=== PATIENT | female | born 1945 | race Asian ===

== ENCOUNTER 2019-12-19 14:22 | Inpatient (IN) | payer MEDICARE ==
[2019-12-19 14:55] LABS: #Basophils 0.1 thou/uL (0.0-0.2); #Eosinphils 0.3 thou/uL (0.0-0.7); #Lymphocytes 1.5 thou/uL (1.20-3.40); #Monocytes 0.6 thou/uL (0.11-0.59); #Neutrophils 5.1 thou/uL (1.40-6.50); %Basophils 0.9 % (0.0-1.0); %Eosinophils 3.6 % (0.0-10.0); %Lymphocytes 20.3 % (21.0-51.0); %Monocytes 8.2 % (0.0-10.0); %Neutrophils 66.9 % (42.0-75.0); Hemoglobin 10.7 g/dL (12.0-16.0); Mean Corpuscular HGB CONC 32.8 g/dL (32.0-36.0); Mean Corpuscular Hemoglobin 29.8 pg (27.0-31.0); Mean Corpuscular Volume 90.9 fL (78.0-98.0); Mean Platelet Volume 6.6 fL (7.4-10.4); Platelet Count 255 thou/uL (130-400); RBC Distribution Width 13.5 % (11.5-14.5); Red Blood Cell (RBC) Count 3.59 mill/uL (4.20-5.40); White Blood Cell (WBC) Count 7.6 thou/uL (4.8-10.8)
[2019-12-19 15:14] LABS: ALT (SGPT) 16 U/L (8-55); AST (SGOT) 20 U/L (5-34); Albumin 3.9 g/dL (3.4-4.8); Alkaline Phosphatase 70 U/L (40-110); Anion Gap 11 mmol/L (10-20); BUN (Urea Nitrogen) 15 mg/dL (9.8-20.1); Bilirubin, Total 0.6 mg/dL (0.2-1.2); CK (CPK) 92 U/L (29-168); Calc. Creatinine Clearance 0 mL/min (70-130); Calcium 8.7 mg/dL (7.8-10.44); Carbon Dioxide 25 mmol/L (23-31); Chloride 98 mmol/L (98-107); Estimated GFR-MDRD 74; Globulin 3.2 g/dL (2.4-3.5); Glucose 125 mg/dL (83-110); Potassium 3.4 mmol/L (3.5-5.1); Protein, Total 7.1 g/dL (6.0-8.3); Sodium 131 mmol/L (136-145)
--- NOTE | 2019-12-19 15:23 | RAD ---
EXAM: Two views chest PROVIDED CLINICAL HISTORY: Cough and increasing shortness of breath. Swelling in legs. COMPARISON: 12/10/2019 FINDINGS: Cardiac silhouette remains enlarged. Calcified mitral valve annulus is again noted. Again noted is mi ld prominence of the perihilar interstitial markings which could be related to an element of mild pulmonary edema. There is increased density overlying left lateral costophrenic angle similar to prio r study which is probably due to overlying soft tissue density as opposed to pleural fluid or atelectasis. No consolidation is seen. Vascular calcifications are again seen in the thoracic as well as visualized abdominal aorta. Again noted is severe left glenohumeral osteoarthropathy. Osteonecrosis involving the humeral head cannot be entirely excluded, and this was better evaluated o n study of 09/23/2019. IMPRESSION: Cardiomegaly with mild increase in perihilar interstitial densities which could relate to an element of mild pulmonary edema..
[2019-12-19] MEDS ORDERED: Furosemide 20 MG/2 ML VIAL ONE (16:37)
[2019-12-19] MEDS ORDERED: Dextrose 50% Abboject 50 ML SYRINGE SLOW IVP PRN (17:00)
[2019-12-19] MEDS ORDERED: Ondansetron PF 4 MG/2 ML Vial IVP PRN (17:00)
[2019-12-19] MEDS ORDERED: Acetaminophen 650 MG Suppository PR PRN (17:00)
[2019-12-19] MEDS ORDERED: HumaLOG 300 UNITS/3 ML VIAL SC PRN (17:00)
[2019-12-19] MEDS ORDERED: Dextrose 5% in Water 1,000 ML IV PRN (17:00)
--- NOTE | 2019-12-19 17:16 | HP ---
PRIMARY CARE PROVIDER: Angie Coronel MD CHIEF COMPLAINT: Shortness of breath. HISTORY OF PRESENT ILLNESS: Ms. Burns is a pleasant 74-year-old lady, who was seen at [facility] on December 19, 2019. The patient is able to provide history. Her daughter was the leather sprayer for this clinical encounter. Ms. Burns has been on furosemide for at least 10 years. Her roller varnisher is Dr. Dela Cruz. Over the last 2 weeks, she has noticed leg swelling and shortness of breath. [facility]. Her Lasix dose was doubled from 20 mg 2 times a day to 40 mg 2 times a day. She continued to have the above symptoms. She endorses orthopnea, paroxysmal nocturnal dyspnea, cough that is occasionally productive of sputum and shortness of breath on exertion. She denies any fevers, nausea, vomiting, or chest pain. She denies any abdominal pain. She came to the emergency room because of ongoing symptoms. REVIEW OF SYSTEMS: All systems were reviewed and found to be negative except for the pertinent positives mentioned above. PAST MEDICAL HISTORY: Congestive heart failure; myocardial infarction; diabetes mellitus, type 2; hypertension; and coronary artery disease. PAST SURGICAL HISTORY: Dental surgery and cardiac catheterization with stent. SOCIAL HISTORY: No history of tobacco use, alcohol use, or recreational drug use. FAMILY HISTORY: Significant for multiple members with coronary artery disease. ALLERGIES: TRAMADOL. CURRENT MEDICATIONS: 1. Lasix 40 mg 2 times a day. 2. Nifedipine 60 mg daily. 3. Eliquis 5 mg 2 times a day. 4. Coreg 12.5 mg 2 times a day. 5. Telmisartan 80 mg daily. 6. Isosorbide mononitrate 60 mg daily. CODE STATUS: I discussed her code status. She is DNAR. PHYSICAL EXAMINATION: GENERAL: On examination, Ms. Burns is awake and alert, not in acute distress. VITAL SIGNS: Blood pressure is 137/60, pulse 70, respiratory rate 22, and oxygen saturation 92% on room air. She is afebrile. EYES: No scleral icterus. No conjunctival pallor. ENT: Moist mucosal membranes. No oropharyngeal erythema or exudates. NECK: Supple, nontender, trachea midline. She has jugular venous distention. RESPIRATORY: Accessory muscles of breathing are mildly active. Chest wall movements are symmetric bilaterally. LUNGS: Reveal bilateral crackles. CARDIOVASCULAR: S1 and S2 are heard, irregular. Peripheral pulses palpable. No pericardial rub. ABDOMEN: Distended, nontender. Bowel sounds are heard. NEUROLOGIC: Cranial nerves II through XII are intact. MUSCULOSKELETAL: The patient is able to move all 4 extremities. SKIN: Bilateral lower extremity pitting edema. LYMPHATIC: No cervical lymphadenopathy. PSYCHIATRIC: Normal mood, normal affect. The patient is oriented to person, place, and time. DIAGNOSTIC DATA: Ms. Burns's labs and investigations were reviewed. I reviewed her electrocardiogram, which shows atrial fibrillation, premature ventricular complexes, no ST changes to suggest an acute coronary syndrome. Chest x-ray by my review shows pulmonary edema. She has normal white count, normocytic anemia with hemoglobin 10.7, normal platelet count, decreased sodium of 131, decreased potassium of 3.4, normal creatinine, normal LFTs and elevated BNP of 355. ASSESSMENT AND PLAN: Ms. Burns is a pleasant 74-year-old lady, who was seen at [facility] on December 19, 2019. Her problem list includes: 1. Congestive heart failure exacerbation: Ms. Burns is presenting with congestive heart failure exacerbation. She had left ventricular ejection fraction of 55% to 60% on 2D echocardiogram done in October 2016. She will be admitted to the hospital for further management. I will treat her with furosemide, daily weights, and in's and out's. We will check 2D echocardiogram. We will consult Cardiology Service for opinion and help with management. 2. Diabetes mellitus, type 2: Start Accu-Cheks and insulin sliding scale. 3. Atrial fibrillation: The patient has a history of atrial fibrillation. We will continue Eliquis. 4. Hypertension: We will continue home medications, monitor vital signs and titrate antihypertensives as needed. Many thanks for allowing me to participate in your patient's care. Please feel free to contact me with any questions or concerns. LEVEL OF RISK: High. LEVEL OF COMPLEXITY: High. Job ID: [id number]
[2019-12-19 17:38] LABS: Troponin I Less than 0.010 ng/mL (< 0.028)
[2019-12-19] MEDS: Acetaminophen 325 MG TAB PO PRN (19:20)
[2019-12-19] MEDS ORDERED: Melatonin 3 MG TAB PO PRN (20:08)
[2019-12-19] MEDS ORDERED: Non-Formulary Item 1 EACH (Pitavastatin Calcium [Livalo] 4 MG) PO SCH (20:15)
[2019-12-19] MEDS ORDERED: Apixaban 5 MG TAB PO SCH (21:00)
[2019-12-19] MEDS ORDERED: Furosemide 20 MG TAB PO SCH (21:00)
[2019-12-19 21:13] LABS: Troponin I 0.013 ng/mL (< 0.028)
[2019-12-19] MEDS ORDERED: Carvedilol 6.25 MG TAB PO SCH (21:15)
[2019-12-19] MEDS: Apixaban 5 MG TAB PO SCH (21:17)
[2019-12-19] MEDS: traZODone HCl 50 MG TAB PO SCH (21:17)
[2019-12-19] MEDS: Bisacodyl 5 MG TAB PO PRN (21:19)
[2019-12-19] MEDS ORDERED: rOPINIRole HCl 0.5 MG TAB PO SCH ×2 (21:30→21:54)
[2019-12-19] MEDS ORDERED: Simethicone Chewable 80 MG TAB PO SCH (21:30)
--- NOTE | 2019-12-19 21:56 | PDOC.EVN ---
Event Note - Event Note Event Note: Called for restless leg symptoms which are daily occuring and uncontrolled on home meds. Requip is ordered 0.5 mg qHS, will increase to 1mg qHS, continue increasing every 2 days or so as normal effective dose is 2-4mg daily per uptodate
[2019-12-19 23:53] VITALS: BMI 34.9
--- NOTE | 2019-12-20 01:48 | CON ---
DATE OF CONSULTATION: HISTORY: Zeynep Burns is a 74 year-old female who has been a long-time patient of Dr. Dela Cruz. In 2009, she underwent PTCA and stent placement. She has history of atrial fibrillation and has been on chronic anticoagulation. She was last admitted in January 2017, with increased dyspnea. Recently, she has been having increasing shortness of breath as well as lower extremity edema. She has had problems with episodes of PND and orthopnea. At times when she is supine in bed and develops the PND, she has some chest pressure that would last for 5-10 minutes. Her furosemide was increased from 20 b.i.d. to 40 q.a.m, 20 q.p.m. and then 40 b.i.d. without significant improvement in her dyspnea. She saw Dr. Dela Cruz on December 15. Echocardiogram that day revealed ejection fraction of 50% to 55% with mild aortic stenosis with a peak gradient of 16.8 mm , mean gradient of 9 mm, aortic valve area 1.67 cm2. She also had severe mitral regurgitation. Left ventricular size; however was normal. Procardia 60 b.i.d. was reduced to q.a.m. and she was restarted on Micardis 80 mg one half tablet daily. She has not had the Micardis filled yet. PAST MEDICAL HISTORY: Coronary artery disease, diastolic heart failure, severe mitral regurgitation, mild aortic stenosis, diabetes and hypertension. CURRENT MEDICATIONS: 1. Furosemide 20 mg-two tablets b.i.d. 2. Eliquis 5 mg daily. 3. Aspirin 81 daily. 4. Carvedilol 6.25 b.i.d. 5. Zyrtec 10 daily. 6. Isosorbide mononitrate 60 q.a.m. 7. Melatonin 3 mg at bedtime. 8. Procardia 60 daily. 9. Omeprazole 20 daily. 10. Livalo 4 mg every other day. 11. Simethicone p.r.n. 12. Trazodone 50 daily. ALLERGIES: TRAMADOL. SOCIAL HISTORY: She does not smoke. PHYSICAL EXAMINATION: VITAL SIGNS: Blood pressure 186/75, pulse of 91. HEENT: PERRL. NECK: Supple. CHEST: Reveals crackles at the bases. CARDIOVASCULAR: S1 and S2 normal without any S3 or S4. There is a 2/6 holosystolic murmur along the left lower sternal border. ABDOMEN: Normal bowel sounds without tenderness or organomegaly. EXTREMITIES: Revealed 2+ edema. NEUROLOGIC: Grossly intact. SKIN: Warm and dry. IMAGING: EKG reveals atrial fibrillation and evidence for septal infarction. LABORATORY DATA: Hemoglobin 10.7, hematocrit 32.6, white count 7600, platelets 255,000. Sodium 131, potassium 3.4, chloride 98, carbon dioxide 25, BUN 15, creatinine 0.76. BNP 355.0. Cardiac enzymes are unremarkable. IMPRESSION: 1. Ipygr-uc-bgdirwa diastolic heart failure. 2. Severe mitral regurgitation. 3. Mild aortic stenosis. 4. History of coronary artery disease with stent placement. 5. Hypertension. 6. Diabetes. 7. Hypercholesterolemia-LDL 60 earlier this month. PLAN: The patient will be placed on 40 mg of Lasix IV b.i.d. The Micardis will be restarted. Renal function will be watched closely with diuresis. If she continues to have problems with this, then she may be a candidate for a MitraClip. Job ID: [id number] [facility]
[2019-12-20 04:21] LABS: #Eosinphils 0.3 thou/uL (0.0-0.7); #Lymphocytes 1.6 thou/uL (1.20-3.40); #Monocytes 0.7 thou/uL (0.11-0.59); #Neutrophils 4.3 thou/uL (1.40-6.50); %Basophils 0.5 % (0.0-1.0); %Eosinophils 3.7 % (0.0-10.0); %Lymphocytes 23.1 % (21.0-51.0); %Monocytes 9.9 % (0.0-10.0); %Neutrophils 62.9 % (42.0-75.0); Mean Corpuscular HGB CONC 32.1 g/dL (32.0-36.0); Mean Corpuscular Hemoglobin 29.3 pg (27.0-31.0); Mean Corpuscular Volume 91.3 fL (78.0-98.0); Mean Platelet Volume 6.8 fL (7.4-10.4); Platelet Count 251 thou/uL (130-400); RBC Distribution Width 13.7 % (11.5-14.5); Red Blood Cell (RBC) Count 3.42 mill/uL (4.20-5.40); White Blood Cell (WBC) Count 6.8 thou/uL (4.8-10.8)
[2019-12-20 04:31] LABS: Anion Gap 14 mmol/L (10-20); BUN (Urea Nitrogen) 15 mg/dL (9.8-20.1); Calc. Creatinine Clearance 102 mL/min (70-130); Calcium 8.7 mg/dL (7.8-10.44); Carbon Dioxide 26 mmol/L (23-31); Chloride 98 mmol/L (98-107); Estimated GFR-MDRD 85; Glucose 114 mg/dL (83-110); Potassium 3.1 mmol/L (3.5-5.1); Sodium 135 mmol/L (136-145)
[2019-12-20] MEDS: Furosemide 40 MG/4 ML VIAL SLOW IVP SCH ×2 (05:53→13:03)
[2019-12-20] MEDS ORDERED: Carvedilol 6.25 MG TAB PO SCH (08:00)
[2019-12-20] MEDS: Simethicone Chewable 80 MG TAB PO SCH ×3 (08:50→18:06)
[2019-12-20] MEDS: Carvedilol 6.25 MG TAB PO SCH ×2 (08:50→18:06)
[2019-12-20] MEDS: Aspirin 81 mg Enteric Coated Tablet PO SCH (08:51)
[2019-12-20] MEDS: Apixaban 5 MG TAB PO SCH ×2 (08:51→21:01)
[2019-12-20] MEDS: NIFEdipine XL 60 MG TAB PO SCH (08:51)
[2019-12-20] MEDS ORDERED: NIFEdipine XL 60 MG TAB PO SCH (09:00)
[2019-12-20] MEDS ORDERED: rOPINIRole HCl 0.5 MG TAB PO SCH ×2 (09:00→21:00)
[2019-12-20] MEDS ORDERED: Losartan 25 MG TAB PO SCH ×2 (09:00)
[2019-12-20] MEDS ORDERED: traZODone HCl 50 MG TAB PO SCH (09:00)
[2019-12-20] MEDS ORDERED: TELMISARTAN 40 MG PO SCH (09:00)
[2019-12-20] MEDS ORDERED: Potassium Chloride 20 MEQ TAB PO SCH (14:15)
--- NOTE | 2019-12-20 17:28 | PDOC.HOSPP ---
- Subjective Encounter Date: 12/20/19 Encounter Time: 08:40 Subjective: Pt seen for followup re: CHF exacerbation. Feels better today. - Objective Vital Signs & Weight: Vital Signs (12 hours) Temp Pulse Pulse Pulse Resp BP BP 12/20/19 15:44 98.1 F 65 22 H 12/20/19 15:00 82 105 H 159/68 H 176/73 H 12/20/19 12:23 97.3 F L 56 L 15 12/20/19 10:06 68 144/64 H 12/20/19 07:46 99.3 F 85 22 H BP BP BP Pulse Ox Pulse Ox 12/20/19 15:44 148/68 H 98 12/20/19 15:00 97 12/20/19 12:23 147/91 H 92 L 12/20/19 10:06 90 L 12/20/19 07:46 174/84 H 92 L Weight Weight 197 lb Result Diagrams: 12/20/19 03:41 12/20/19 03:41 Additional Labs: Accuchecks 12/20/19 12/20/19 12/19/19 11:46 05:58 21:13 POC Glucose 147 H 125 H 126 H Labs and MARs reviewed by me EKG Reviewed by me: Yes (Tele: a. fib) Hospitalist ROS - Review of Systems Constitutional: denies: fever, chills, sweats, weakness, malaise Respiratory: reports: SOB with excertion Cardiovascular: reports: orthopnea, edema. denies: chest pain, palpitations, paroxysmal noc. dyspnea, light headedness - Medication Medications: Active Medications Generic Name Dose Route Start Last Admin Trade Name Freq PRN Reason Stop Dose Admin Acetaminophen 650 mg 12/19/19 17:00 12/19/19 19:20 Tylenol PO 650 mg Q4H PRN Administration Headache/Fever/Mild Pain (1-3) Apixaban 5 mg 12/19/19 21:00 12/20/19 08:51 Eliquis PO 5 mg BID SLOANE Administration Aspirin 81 mg 12/20/19 09:00 12/20/19 08:51 Ecotrin PO 81 mg DAILY SLOANE Administration Bisacodyl 10 mg 12/19/19 17:00 12/19/19 21:19 Dulcolax PO 10 mg DAILYPRN PRN Administration Constipation Carvedilol 12.5 mg 12/20/19 08:00 12/20/19 08:50 Coreg PO 12.5 mg BID-WM SLOANE Administration Furosemide 40 mg 12/20/19 06:00 12/20/19 13:03 Lasix SLOW IVP 40 mg 0600,1400 SLOANE Administration Isosorbide Mononitrate 60 mg 12/20/19 09:00 12/20/19 08:51 Imdur PO 60 mg DAILY SLOANE Administration Losartan Potassium 50 mg 12/20/19 09:00 12/20/19 08:51 Cozaar PO 50 mg DAILY SLOANE Administration Nifedipine 60 mg 12/20/19 09:00 12/20/19 08:51 Procardia Xl PO 60 mg DAILY SLOANE Administration Pantoprazole Sodium 40 mg 12/20/19 09:00 12/20/19 08:52 Protonix PO 40 mg DAILY SLOANE Administration Simethicone 160 mg 12/20/19 08:00 12/20/19 12:26 Mylicon Chewable PO 160 mg TID-WM SLOANE Administration Trazodone HCl 50 mg 12/19/19 21:00 12/19/19 21:17 Desyrel PO 50 mg HS SLOANE Administration - Exam General - other findings: Obese Eye: anicteric sclera ENT: moist mucosa Neck: supple, JVD Heart: irregular Respiratory - other findings: Yogi crackles Gastrointestinal: soft, non-tender Extremities: 2+ LE edema Skin: no rashes Psychiatric: normal affect, normal behavior Hosp A/P (1) Acute on chronic systolic heart failure, NYHA class 3 Code(s): I50.23 - ACUTE ON CHRONIC SYSTOLIC (CONGESTIVE) HEART FAILURE Status : Acute (2) Hypokalemia Code(s): E87.6 - HYPOKALEMIA Status: Acute (3) Hyponatremia Code(s): E87.1 - HYPO-OSMOLALITY AND HYPONATREMIA Status: Acute (4) Atrial fibrillation Code(s): I48.91 - UNSPECIFIED ATRIAL FIBRILLATION Status: Chronic (5) Chronic anticoagulation Code(s): Z79.01 - CATERING SALES MANAGER (CURRENT) USE OF ANTICOAGULANTS Status: Chronic (6) Diabetes mellitus type 2 in obese Code(s): E11.9 - TYPE 2 DIABETES MELLITUS WITHOUT COMPLICATIONS; E66.9 - OBESITY , UNSPECIFIED Status: Chronic (7) Hyperlipidemia Code(s): E78.5 - HYPERLIPIDEMIA, UNSPECIFIED Status: Chronic (8) Hypertension Code(s): I10 - ESSENTIAL (PRIMARY) HYPERTENSION Status: Chronic (9) RLS (restless legs syndrome) Status: Chronic - Plan Clinically improving. Continue furosemide. Replace potassium. hyponatremia mild. Continue accuchecks and insulin sliding scale. Titrate ropinirole for RLS BP elevated at times. Monitor vital signs, titrate antihypertensives as needed. Add PRN IV hydralazine. Ambulate pt.
[2019-12-20] MEDS ORDERED: hydrALAZINE 20 MG/ML VIAL SLOW IVP PRN (17:38)
[2019-12-20] MEDS: rOPINIRole HCl 0.5 MG TAB PO SCH (21:00)
[2019-12-20] MEDS: hydrALAZINE 25 MG TAB PO SCH (21:01)
[2019-12-20] MEDS: traZODone HCl 50 MG TAB PO SCH (21:01)
--- NOTE | 2019-12-21 04:09 | PDOC.EVN ---
Event Note - Event Note Event Note: RN called - Post void 524 ml PLAN: Urine Cath x 1 Monitor Post void
[2019-12-21 04:48] LABS: #Basophils 0.1 thou/uL (0.0-0.2); #Eosinphils 0.2 thou/uL (0.0-0.7); #Lymphocytes 1.7 thou/uL (1.20-3.40); #Monocytes 0.8 thou/uL (0.11-0.59); #Neutrophils 6.1 thou/uL (1.40-6.50); %Basophils 0.6 % (0.0-1.0); %Eosinophils 2.2 % (0.0-10.0); %Lymphocytes 18.9 % (21.0-51.0); %Monocytes 9.4 % (0.0-10.0); %Neutrophils 68.9 % (42.0-75.0); Mean Corpuscular HGB CONC 30.9 g/dL (32.0-36.0); Mean Corpuscular Hemoglobin 28.4 pg (27.0-31.0); Mean Corpuscular Volume 91.7 fL (78.0-98.0); Mean Platelet Volume 6.8 fL (7.4-10.4); Platelet Count 271 thou/uL (130-400); RBC Distribution Width 13.8 % (11.5-14.5); Red Blood Cell (RBC) Count 3.87 mill/uL (4.20-5.40); White Blood Cell (WBC) Count 8.9 thou/uL (4.8-10.8)
[2019-12-21 05:12] LABS: Anion Gap 12 mmol/L (10-20); BUN (Urea Nitrogen) 18 mg/dL (9.8-20.1); Calc. Creatinine Clearance 101 mL/min (70-130); Calcium 9.2 mg/dL (7.8-10.44); Carbon Dioxide 31 mmol/L (23-31); Chloride 97 mmol/L (98-107); Estimated GFR-MDRD 83; Glucose 128 mg/dL (83-110); Potassium 3.8 mmol/L (3.5-5.1); Sodium 136 mmol/L (136-145)
[2019-12-21] MEDS: Furosemide 40 MG/4 ML VIAL SLOW IVP SCH ×2 (05:34→13:55)
[2019-12-21] MEDS: Carvedilol 6.25 MG TAB PO SCH ×2 (08:55→16:05)
[2019-12-21] MEDS: Simethicone Chewable 80 MG TAB PO SCH ×3 (08:56→16:05)
[2019-12-21] MEDS: Apixaban 5 MG TAB PO SCH ×2 (08:56→20:34)
[2019-12-21] MEDS: Losartan 25 MG TAB PO SCH (08:57)
[2019-12-21] MEDS: hydrALAZINE 25 MG TAB PO SCH ×3 (08:57→20:33)
[2019-12-21] MEDS: Aspirin 81 mg Enteric Coated Tablet PO SCH (08:57)
[2019-12-21] MEDS: NIFEdipine XL 60 MG TAB PO SCH (08:58)
[2019-12-21] MEDS ORDERED: Lidocaine 5% Patch TD SCH (11:00)
[2019-12-21] MEDS: Lidocaine 5% Patch TD SCH (11:20)
[2019-12-21] MEDS: Acetaminophen 325 MG TAB PO PRN (11:29)
[2019-12-21] MEDS ORDERED: Ketorolac Tromethamine 30 MG/ML VIAL IVP SCH (13:00)
--- NOTE | 2019-12-21 13:04 | PDOC.HOSPP ---
- Subjective Encounter Date: 12/21/19 Encounter Time: 08:00 Subjective: Pt seen for followup re: CHF exacerbation. c/o right foot pain. No fevers. - Objective Vital Signs & Weight: Vital Signs (12 hours) Temp Pulse Resp BP BP BP Pulse Ox 12/21/19 11:26 98.0 F 65 18 145/104 H 98 12/21/19 07:43 98.4 F 77 16 135/79 99 12/21/19 03:57 98.5 F 74 16 173/72 H 96 Weight Weight 187 lb 14.4 oz I&O: 12/20/19 12/21/19 12/22/19 06:59 06:59 06:59 Intake Total 1480 Output Total 1950 Balance -470 Result Diagrams: 12/21/19 04:38 12/21/19 04:38 Additional Labs: Accuchecks 12/21/19 12/21/19 12/20/19 10:45 05:32 20:24 POC Glucose 159 H 129 H 129 H 12/20/19 17:26 POC Glucose 168 H Labs and MARs reviewed by me EKG Reviewed by me: Yes (Tele: livier fuchs) Hospitalist ROS - Review of Systems Respiratory: reports: SOB with excertion. denies: cough, shortness of breath, pleuritic pain, wheezing Cardiovascular: reports: edema. denies: chest pain, palpitations, orthopnea, paroxysmal noc. dyspnea, light headedness Musculoskeletal: reports: foot pain - Medication Medications: Active Medications Generic Name Dose Route Start Last Admin Trade Name Freq PRN Reason Stop Dose Admin Acetaminophen 650 mg 12/19/19 17:00 12/21/19 11:29 Tylenol PO 650 mg Q4H PRN Administration Headache/Fever/Mild Pain (1-3) Apixaban 5 mg 12/19/19 21:00 12/21/19 08:56 Eliquis PO 5 mg BID SLOANE Administration Aspirin 81 mg 12/20/19 09:00 12/21/19 08:57 Ecotrin PO 81 mg DAILY SLOANE Administration Bisacodyl 10 mg 12/19/19 17:00 12/19/19 21:19 Dulcolax PO 10 mg DAILYPRN PRN Administration Constipation Carvedilol 12.5 mg 12/20/19 08:00 12/21/19 08:55 Coreg PO 12.5 mg BID-WM SLOANE Administration Furosemide 40 mg 12/20/19 06:00 12/21/19 05:34 Lasix SLOW IVP 40 mg 0600,1400 SLOANE Administration Hydralazine HCl 10 mg 12/20/19 17:38 12/20/19 23:55 Apresoline SLOW IVP 10 mg Q6H PRN Administration SBP Greater Than 170 Hydralazine HCl 25 mg 12/20/19 21:00 12/21/19 08:57 Apresoline PO 25 mg TID SLOANE Administration Isosorbide Mononitrate 60 mg 12/20/19 09:00 12/21/19 08:57 Imdur PO 60 mg DAILY SLOANE Administration Lidocaine 1 patch 12/21/19 11:00 12/21/19 11:20 Lidoderm 5% Patch TD 1 patch 1100 SLOANE Administration Losartan Potassium 100 mg 12/21/19 09:00 12/21/19 08:57 Cozaar PO 100 mg DAILY SLOANE Administration Nifedipine 60 mg 12/20/19 09:00 12/21/19 08:58 Procardia Xl PO 60 mg DAILY SLOANE Administration Ondansetron HCl 4 mg 12/19/19 17:00 12/21/19 12:42 Zofran IVP 4 mg Q6H PRN Administration Nausea/Vomiting Pantoprazole Sodium 40 mg 12/20/19 09:00 12/21/19 08:58 Protonix PO 40 mg DAILY SLOANE Administration Ropinirole HCl 1 mg 12/20/19 21:00 12/20/19 21:00 Requip PO 1 mg HS SLOANE Administration Simethicone 160 mg 12/20/19 08:00 12/21/19 11:20 Mylicon Chewable PO 160 mg TID-WM SLOANE Administration Sodium Chloride 10 ml 12/20/19 21:00 12/21/19 08:58 Flush - Normal Saline IVF 10 ml Q12HR SLOANE Administration Trazodone HCl 50 mg 12/19/19 21:00 12/20/19 21:01 Desyrel PO 50 mg HS SLOANE Administration - Exam General - other findings: Obese Eye: anicteric sclera ENT: moist mucosa Neck: supple Heart: irregular Respiratory - other findings: Yogi crackles Gastrointestinal: soft, non-tender Extremities: 2+ LE edema Skin: no rashes Neurological: no weakness Musculoskeletal - other findings: R foot diffuse tenderness Psychiatric: normal affect Hosp A/P (1) Acute on chronic systolic heart failure, NYHA class 3 Code(s): I50.23 - ACUTE ON CHRONIC SYSTOLIC (CONGESTIVE) HEART FAILURE Status : Acute (2) Right foot pain Code(s): M79.671 - PAIN IN RIGHT FOOT Status: Acute (3) Atrial fibrillation Code(s): I48.91 - UNSPECIFIED ATRIAL FIBRILLATION Status: Chronic (4) Chronic anticoagulation Code(s): Z79.01 - SNF (CURRENT) USE OF ANTICOAGULANTS Status: Chronic (5) Diabetes mellitus type 2 in obese Code(s): E11.9 - TYPE 2 DIABETES MELLITUS WITHOUT COMPLICATIONS; E66.9 - OBESITY , UNSPECIFIED Status: Chronic (6) Hyperlipidemia Code(s): E78.5 - HYPERLIPIDEMIA, UNSPECIFIED Status: Chronic (7) Hypertension Code(s): I10 - ESSENTIAL (PRIMARY) HYPERTENSION Status: Chronic (8) RLS (restless legs syndrome) Status: Chronic (9) Hypokalemia Code(s): E87.6 - HYPOKALEMIA Status: Resolved (10) Hyponatremia Code(s): E87.1 - HYPO-OSMOLALITY AND HYPONATREMIA Status: Resolved - Plan Responding well to IV furosemide. trial toradol/lidocaine patch, check R foot x-rays. Continue accuchecks and insulin sliding scale. Continue ropinirole for RLS increase hydralazine to 50 mg TID. Ambulate pt.
--- NOTE | 2019-12-21 14:22 | RAD ---
Radiograph right foot 3 views: HISTORY: 74-year-old female with acute right foot pain FINDINGS: Diffuse osteopenia. Mild and moderate degenerative changes of multiple joints of the forefoot and mid foot. No grossly displaced fracture identified. IMPRESSION: 1. Osteoarthrosis. 2. Osteopenia.
[2019-12-21] MEDS: traZODone HCl 50 MG TAB PO SCH (20:32)
[2019-12-21] MEDS: rOPINIRole HCl 0.5 MG TAB PO SCH (20:33)
[2019-12-22] MEDS: Lidocaine Patch Removal 1 EACH TOP SCH (04:47)
[2019-12-22 04:49] LABS: #Eosinphils 0.1 thou/uL (0.0-0.7); #Lymphocytes 1.4 thou/uL (1.20-3.40); #Monocytes 1.3 thou/uL (0.11-0.59); #Neutrophils 5.9 thou/uL (1.40-6.50); %Basophils 0.4 % (0.0-1.0); %Lymphocytes 15.9 % (21.0-51.0); %Monocytes 14.6 % (0.0-10.0); %Neutrophils 68.1 % (42.0-75.0); Hemoglobin 9.9 g/dL (12.0-16.0); Mean Corpuscular HGB CONC 31.1 g/dL (32.0-36.0); Mean Corpuscular Volume 90.1 fL (78.0-98.0); Mean Platelet Volume 6.9 fL (7.4-10.4); Platelet Count 269 thou/uL (130-400); RBC Distribution Width 13.8 % (11.5-14.5); Red Blood Cell (RBC) Count 3.53 mill/uL (4.20-5.40); White Blood Cell (WBC) Count 8.7 thou/uL (4.8-10.8)
[2019-12-22 05:06] LABS: Anion Gap 12 mmol/L (10-20); BUN (Urea Nitrogen) 25 mg/dL (9.8-20.1); Calc. Creatinine Clearance 68 mL/min (70-130); Calcium 8.5 mg/dL (7.8-10.44); Carbon Dioxide 31 mmol/L (23-31); Chloride 93 mmol/L (98-107); Estimated GFR-MDRD 55; Glucose 121 mg/dL (83-110); Potassium 3.7 mmol/L (3.5-5.1); Sodium 132 mmol/L (136-145)
[2019-12-22] MEDS: Furosemide 40 MG/4 ML VIAL SLOW IVP SCH (05:43)
[2019-12-22] MEDS: Acetaminophen 325 MG TAB PO PRN (06:09)
[2019-12-22] MEDS: Simethicone Chewable 80 MG TAB PO SCH ×3 (08:39→16:44)
[2019-12-22] MEDS: Carvedilol 6.25 MG TAB PO SCH ×2 (08:39→16:43)
[2019-12-22] MEDS: Apixaban 5 MG TAB PO SCH ×2 (08:40→21:12)
[2019-12-22] MEDS: hydrALAZINE 25 MG TAB PO SCH ×3 (08:40→21:11)
[2019-12-22] MEDS: Aspirin 81 mg Enteric Coated Tablet PO SCH (08:40)
[2019-12-22] MEDS: Losartan 25 MG TAB PO SCH (08:41)
[2019-12-22] MEDS ORDERED: methylPREDNISolone Sod Succ 40 MG VIAL IVP SCH (09:15)
[2019-12-22] MEDS: Lidocaine 5% Patch TD SCH ×2 (10:21→12:18)
[2019-12-22 10:24] LABS: CRP (Inflammatory) 8.48 mg/dL (= or < 0.5); Uric Acid 7.2 mg/dL (2.6-6.0)
[2019-12-22] MEDS ORDERED: Promethazine 25 MG TAB PO PRN (10:48)
[2019-12-22 12:47] LABS: Iron Binding Capacity, Total 331 mcg/dL (265-497)
[2019-12-22 12:48] LABS: Iron 20 ug/dL (50-170)
[2019-12-22 13:37] LABS: EliA RAS New Method **** NEW METHOD ****; Rheumatoid Factor IgM Antibody 6.6 IU/mL (<3.5 Negative)
--- NOTE | 2019-12-22 13:38 | ULT ---
ULTRASOUND DOPPLER DUPLEX VENOUS BILATERAL LOWER EXTREMITIES: DATE: 12/22/2019 HISTORY: 74-year-old female with bilateral lower extremity pain TECHNIQUE: Grayscale, color-flow, and spectral analysis, of major veins of bilateral lower extremities. FINDINGS: There is demonstration of blood flow with normal compressibility, of the bilateral common femoral, pr ofunda femoral, greater saphenous, femoral, popliteal, and posterior tibial, veins. IMPRESSION: Negative. No deep venous thrombosis of bilateral lower extremities.
--- NOTE | 2019-12-22 14:07 | PQF ---
MANE JOINER DAVID [phone] [facility]-292 [phone] CLINICAL DOCUMENTATION IMPROVEMENT CLARIFICATION FORM: ICD-10 Updated PLEASE DO AN ADDENDUM TO THE PROGRESS NOTE WITH ANY DOCUMENTATION UPDATES OR ADDITIONS AND CARRY THROUGH TO DC SUMMARY. THANK YOU. DATE: 12/22/2019 ATTN:DR. Graham DEL REAL Please exercise your independent, professional judgment in responding to the clarification form. Clinical indicators are provided on the bottom of this form for your review. Please check appropriate box(s): Conflicting documentation was noted in the Medical Record, please clarify if patient is being treated/monitored for: [ ] Acute on Chronic Systolic Congestive heart failure [ ] Acute on Chronic Diastolic Congestive heart failure [ ] Other diagnosis [ ] Unable to determine In addition, please specify: Present on Admission (POA): [ ] Yes [ ] No [ ] Unable to determine For continuity of documentation, please document condition throughout progress notes and discharge summary. Thank You. CLINICAL INDICATORS - SIGNS / SYMPTOMS/ LABS / RESULTS AND LOCATION IN EMR 12/19 ED REPORT : PT PRESENTS WITH C/O INCREASED SOB AND SWELLING TO BLE FOR PAST TWO WEEKS. ED PHYSICIAN FINAL DX: ACUTE SYSTOLIC CHF 12/19 BNP 355.0 12/19 H&P (GT) CONGESTIVE HEART FAILURE EXACERBATION 12/19 CONSULT (INDERJIT) HX: SHE SAW DR. WANG ON Nov. ECHO THAT DAY REVEALED EF OF 50%-55% WITH MILD AORTIC STENOSIS. PMH: DIASTOLIC HEART FAILURE; IMPRESSION: ACUTE ON CHRONIC DIASTOLIC HEART FAILURE 12/20, 2/ PN (GT) HOSP A/P : 1). ACUTE ON CHRONIC SYSTOLIC HEART FAILURE RISK: HX OF CHF, CAD, HTN (H&P/GT) 12/19 TREATMENTS: LASIX IV BID ( 12/20 -12/22) CARDIOLOGY CONSULT 12/19 THANK YOU! KESHAWN (This form is maintained as a part of the permanent medical record) 2014 [employer] All Rights Reserved [email or web address] [phone] [email or web address]
[2019-12-22] MEDS: Ibuprofen 200 MG TAB PO PRN ×2 (14:10→22:08)
[2019-12-22 15:30] LABS: ANA Symphony (Qualitative) POSITIVE (Negative); ANA Symphony (Quantitative) 1.3 Ratio (< 0.7 Negative); CENP IgG Antibody 0.6 EliAU/mL (<7 Negative); Jo-1 IgG Antibody 0.3 EliAU/mL (<7 Negative); RNP70 IgG Antibody 0.4 EliAU/mL (<7 Negative); SSB/La IgG Antibody 0.5 EliAU/mL (<7 Negative); Scleroderma-70 IgG Antibody 0.9 EliAU/mL (<7 Negative); Smith D IgG Antibody 2.3 EliAU/mL (<7 Negative)
[2019-12-22] MEDS ORDERED: Iron Sucrose Complex 200 MG in Sodium Chloride 0.9% 250 ML 250 ML IVPB SCH (17:45)
[2019-12-22] MEDS ORDERED: Iron, Sodium Ferric Gluconate 250 MG in Sodium Chloride 0.9% 100 ML IVPB SCH (18:00)
--- NOTE | 2019-12-22 19:41 | PDOC.HOSPP ---
- Subjective Encounter Date: 12/22/19 Encounter Time: 09:00 Subjective: Pt seen for followup re: CHF exacerbation. c/o david leg pains, on and off. - Objective Vital Signs & Weight: Vital Signs (12 hours) Temp Pulse Pulse Pulse Resp BP BP 12/22/19 15:50 98.3 F 78 18 12/22/19 14:10 78 124/58 L 12/22/19 12:50 98.7 F 58 L 16 12/22/19 10:32 70 78 108/57 L 12/22/19 08:23 98.8 F 79 18 BP BP Pulse Ox Pulse Ox 12/22/19 15:50 113/60 95 12/22/19 14:10 12/22/19 12:50 120/58 L 93 L 12/22/19 10:32 95 12/22/19 08:23 117/80 97 Weight Weight 290 lb I&O: 12/21/19 12/22/19 12/23/19 06:59 06:59 06:59 Intake Total 1480 860 Output Total 1950 740 Balance -470 120 Result Diagrams: 12/22/19 03:45 12/22/19 03:45 Additional Labs: Accuchecks 12/22/19 12/22/19 12/22/19 16:48 10:38 06:12 POC Glucose 300 H 182 H 141 H 12/21/19 21:12 POC Glucose 156 H Labs and MARs reviewed by me EKG Reviewed by me: Yes (Tele: [email or web address]) Hospitalist ROS - Review of Systems Cardiovascular: denies: chest pain, palpitations, orthopnea, paroxysmal noc. dyspnea, edema, light headedness Gastrointestinal: denies: nausea, vomiting, abdominal pain, diarrhea, constipation, melena, hematochezia Musculoskeletal: reports: leg pain - Medication Medications: Active Medications Generic Name Dose Route Start Last Admin Trade Name Freq PRN Reason Stop Dose Admin Acetaminophen 650 mg 12/19/19 17:00 12/22/19 06:09 Tylenol PO 650 mg Q4H PRN Administration Headache/Fever/Mild Pain (1-3) Apixaban 5 mg 12/19/19 21:00 12/22/19 08:40 Eliquis PO 5 mg BID SLOANE Administration Aspirin 81 mg 12/20/19 09:00 12/22/19 08:40 Ecotrin PO 81 mg DAILY SLOANE Administration Bisacodyl 10 mg 12/19/19 17:00 12/19/19 21:19 Dulcolax PO 10 mg DAILYPRN PRN Administration Constipation Carvedilol 12.5 mg 12/20/19 08:00 12/22/19 16:43 Coreg PO 12.5 mg BID-WM SLOANE Administration Hydralazine HCl 10 mg 12/20/19 17:38 12/20/19 23:55 Apresoline SLOW IVP 10 mg Q6H PRN Administration SBP Greater Than 170 Hydralazine HCl 50 mg 12/21/19 15:00 12/22/19 14:10 Apresoline PO 50 mg TID SLOANE Administration Ibuprofen 400 mg 12/22/19 12:36 12/22/19 14:10 Motrin PO 400 mg TIDPRN PRN Administration Pain Isosorbide Mononitrate 60 mg 12/20/19 09:00 12/22/19 08:41 Imdur PO 60 mg DAILY SLOANE Administration Lidocaine 1 patch 12/21/19 11:00 12/22/19 12:18 Lidoderm 5% Patch TD 1 patch 1100 SLOANE Administration Losartan Potassium 100 mg 12/21/19 09:00 12/22/19 08:41 Cozaar PO 100 mg DAILY SLOANE Administration Miscellaneous Medication 1 each 12/21/19 23:00 12/22/19 04:47 Lidocaine Patch Removal TOP Not Given 2300 SLOANE Ondansetron HCl 4 mg 12/19/19 17:00 12/21/19 12:42 Zofran IVP 4 mg Q6H PRN Administration Nausea/Vomiting Pantoprazole Sodium 40 mg 12/20/19 09:00 12/22/19 08:41 Protonix PO 40 mg DAILY SLOANE Administration Ropinirole HCl 1 mg 12/20/19 21:00 12/21/19 20:33 Requip PO 1 mg HS SLOANE Administration Simethicone 160 mg 12/20/19 08:00 12/22/19 16:44 Mylicon Chewable PO 160 mg TID-WM SLOANE Administration Sodium Chloride 10 ml 12/20/19 21:00 12/22/19 08:42 Flush - Normal Saline IVF 10 ml Q12HR SLOANE Administration Trazodone HCl 50 mg 12/19/19 21:00 12/21/19 20:32 Desyrel PO Not Given HS SLOANE - Exam General - other findings: Obese Eye: anicteric sclera ENT: moist mucosa Neck: supple Heart: RRR Respiratory: CTAB Gastrointestinal: soft, non-tender Extremities - other findings: david foot and calf tenderness Psychiatric: normal affect, normal behavior Hosp A/P (1) Acute on chronic diastolic CHF (congestive heart failure), NYHA class 3 Code(s): I50.33 - ACUTE ON CHRONIC DIASTOLIC (CONGESTIVE) HEART FAILURE Status : Acute Plan: Present on admission (2) Bilateral lower extremity pain Code(s): M79.604 - PAIN IN RIGHT LEG; M79.605 - PAIN IN LEFT LEG Status: Acute (3) Atrial fibrillation Code(s): I48.91 - UNSPECIFIED ATRIAL FIBRILLATION Status: Chronic (4) Chronic anticoagulation Code(s): Z79.01 - [facility] (CURRENT) USE OF ANTICOAGULANTS Status: Chronic (5) Diabetes mellitus type 2 in obese Code(s): E11.9 - TYPE 2 DIABETES MELLITUS WITHOUT COMPLICATIONS; E66.9 - OBESITY , UNSPECIFIED Status: Chronic (6) Hyperlipidemia Code(s): E78.5 - HYPERLIPIDEMIA, UNSPECIFIED Status: Chronic (7) Hypertension Code(s): I10 - ESSENTIAL (PRIMARY) HYPERTENSION Status: Chronic (8) RLS (restless legs syndrome) Status: Chronic (9) Hypokalemia Code(s): E87.6 - HYPOKALEMIA Status: Resolved (10) Hyponatremia Code(s): E87.1 - HYPO-OSMOLALITY AND HYPONATREMIA Status: Resolved - Plan Switch to oral furosemide. Eval for arthrtis/DVT/neuropathic pain Continue accuchecks and insulin sliding scale. Continue ropinirole for RLS Ambulate pt. Iron infusion for iron deficiency.
[2019-12-22] MEDS ORDERED: Gabapentin 100 MG CAP PO SCH (20:00)
[2019-12-22] MEDS: rOPINIRole HCl 0.5 MG TAB PO SCH (21:11)
[2019-12-23] MEDS: traZODone HCl 50 MG TAB PO SCH (00:13)
[2019-12-23] MEDS: Lidocaine Patch Removal 1 EACH TOP SCH (00:13)
[2019-12-23] MEDS ORDERED: Furosemide 40 MG TAB PO SCH (07:30)
[2019-12-23] MEDS ORDERED: Ferrous Sulfate 325 MG TAB PO SCH (08:00)
[2019-12-23] MEDS: Aspirin 81 mg Enteric Coated Tablet PO SCH (09:34)
[2019-12-23] MEDS: Losartan 25 MG TAB PO SCH (09:34)
[2019-12-23] MEDS: hydrALAZINE 25 MG TAB PO SCH ×2 (09:34→14:29)
[2019-12-23] MEDS: Apixaban 5 MG TAB PO SCH (09:35)
[2019-12-23] MEDS: Simethicone Chewable 80 MG TAB PO SCH ×3 (09:36→18:10)
[2019-12-23] MEDS: Carvedilol 6.25 MG TAB PO SCH ×2 (09:36→18:10)
[2019-12-23] MEDS: Acetaminophen 325 MG TAB PO PRN (09:37)
--- NOTE | 2019-12-23 11:35 | MRI ---
MRI Lumbar Spine Noncontrast: HISTORY: Bilateral lower extremity pain. Patient complains of low back pain with pain rating down left leg for several years. COMPARISON: None FINDINGS: The visualized retroperitoneal structures demonstrate a normal appearance. A 2 cm increased T2-weight ed signal intensity structure seen in the left adnexal region likely due to small left ovarian cyst. Conus medullaris is normal in morphology and terminates at the T12-L1 level. Scattered degenerative changes are seen in the spine with Schmorl's node inferior endplate L1 vertebr al body. Mild left convex curvature of the lumbar spine is present. T12-L1: There is a mild disc osteophyte complex with facet hypertrophic changes. There is minimal christ rowing of the central spinal canal. The neural foramina are patent L1-2: There is broad-based disc osteophyte complex and mild loss of intervertebral disc height. Facet hypertrophic changes are present at this level. There is mild narrowing of the central spinal canal with mild bilateral neural foraminal narrowing. L2-3: There is loss of intervertebral disc height with prominent endplate degenerative changes. There is slight retrolisthesis of L2 on L3. Prominent facet hypertrophic changes are present at this level. There is mild to moderate narrowing of the central spinal canal. Dgyq-ie-tbifupjb bilateral ne ural foraminal narrowing is present. L3-4: There is mild disc osteophyte complex present. There are prominent facet hypertrophic changes n oted with fluid signal intensity seen in the facet joints. Ligamentous thickening is present. There is [id number]-kt-nzfghchy central canal narrowing with mild bilateral neural foraminal narrowing present. L4-5: There is severe facet hypertrophic changes and ligamentous thickening. Grade 1 anterolisthesis of L4 on L5 is present measuring approximately 6 mm. There is severe central canal narrowing as well as narrowing of the lateral recesses at this level. Mild right and hrws-hi-syfrwtco left-sided n eural foraminal narrowing present. Vacuum phenomenon is seen in the intervertebral disc. L5-S1: There is a broad-based disc osteophyte complex and moderate to severe facet hypertrophic martinez es. Central canal at this level is patent. However, there is moderate to severe bilateral neural foraminal narrowing. Vacuum phenomenon is seen in the intervertebral disc. IMPRESSION: 1. Multilevel disc degenerative changes greatest in the lower lumbar spine at the L4-5 and L5-S1 leve ls. There is severe central canal narrowing at the L4-5 level with moderate to severe bilateral neural foraminal narrowing at the L5-S1 level. Grade 1 anterolisthesis of L4 on L5 is present.
[2019-12-23] MEDS: Bisacodyl 5 MG TAB PO PRN (12:39)
[2019-12-23] MEDS: Lidocaine 5% Patch TD SCH (12:45)
[2019-12-23 17:15] VITALS: BP 145/63; TEMP 98.6
--- NOTE | 2019-12-24 02:17 | DIS ---
DATE OF ADMISSION: 12/19/2019 DATE OF DISCHARGE: 12/23/2019 PRIMARY CARE PROVIDER: Angie Coronel MD DISCHARGE DIAGNOSES: 1. Acute on chronic diastolic congestive heart failure, [place] Heart Association class III. 2. Lumbar spinal stenosis. 3. Restless legs syndrome. 4. Iron deficiency. 5. Bilateral lower extremity pain. 6. Hypokalemia. 7. Hyponatremia. CONDITION OF PATIENT ON THE DAY OF DISCHARGE: Stable. I assessed Ms. Burns on the day of discharge. Bilateral lower extremity pain is better. Vital signs are stable. S1 and S2 are heard, regular. Lungs are clear to auscultation bilaterally. CONSULTATIONS DURING THIS HOSPITALIZATION: Cardiology, Dr. Jay, Dr. Dela Cruz also saw the patient. DISCHARGE MEDICATIONS: It was unclear exactly which medications patient was taking at the time of admission. During this hospitalization, she has been started on: 1. Losartan 100 mg daily. 2. Hydralazine 50 mg 3 times a day. 3. Ropinirole dose was increased to 1 mg at bedtime and she has been started on ibuprofen 400 mg 3 times a day as needed. 4. Livalo was discontinued. Otherwise, discharge medications include: 1. Maalox p.r.n. 2. Tylenol Arthritis p.r.n. 3. Tylenol Extra Strength p.r.n. 4. Apixaban 5 mg 2 times a day. 5. Calcium citrate/vitamin D3 one tablet daily. 6. Zyrtec 10 mg daily. 7. Lasix 20 mg 2 times a day. 8. Imdur 60 mg daily. 9. Multivitamins one tablet daily. 10. Procardia XL 60 mg daily. 11. Omeprazole 20 mg daily. 12. Simethicone 180 mg 3 times a day. 13. Trazodone 50 mg daily. 14. Coenzyme Q10 of 400 mg daily. 15. Vitamin-C/E two capsules daily. 16. Colace 100 mg 2 times a day. 17. Melatonin 3 mg at bedtime as needed. HOSPITAL COURSE: Ms. Burns is a pleasant 74-year-old lady, who was admitted to [facility] on December 19, 2019, for congestive heart failure exacerbation. Please refer to my history and physical note dated December 19, 2019, for further details. She was seen by Cardiology Service. She was treated with intravenous diuretics. She complained of bilateral lower extremity pain. Venogram did not show any evidence of deep vein thrombosis. Lumbar spine MRI shows multilevel disk degenerative changes, greatest in the lower lumbar spine at L4-L5 and L5-S1 levels. She has severe central canal narrowing at the L4-L5 level with [id number]-uk-tkimyj bilateral neural foraminal narrowing at L5-S1 level. Grade 1 anterolisthesis of L4 on L5 is present. I discussed with neurosurgeon on-call. The patient will be referred to Neurosurgery Service as an outpatient. She may benefit from seeing a pain specialist as well. She was also found to be in iron deficiency. I have started her on iron replacement therapy. ESR was normal. C-reactive protein was elevated at 8.48. SHELBY panel is pending. She is advised to follow up with primary care provider for the results. On December 22, she had sodium of 132, potassium 3.7, creatinine 0.98, iron 20, total iron-binding capacity 331. Ferritin was 113.96 during this hospitalization. Hemoglobin was 9.9 on December 22, 2019. Many thanks for allowing me to participate in your patient's care. Please feel free to contact me with any questions or concerns. DISCHARGE DESTINATION: Home with Home Health for chcf and physical therapy. TIME SPENT: Total amount of time spent coordinating this discharge: 33 minutes. Job ID: [id number]
== END 2019-12-23 18:56 | disposition home health service (06) | DRG 292 ==
LOC: ERS 14:22 → 2NO 16:44
PROVIDERS: ADMIT Internal Medicine; ATTEND Internal Medicine
DX: I11.0 Hypertensive heart disease with heart failure (principal); E87.1 Hypo-osmolality and hyponatremia; I50.33 Acute on chronic diastolic (congestive) heart failure; G25.81 Restless legs syndrome; M48.061 Spinal stenosis, lumbar region without neurogenic claudication; E87.6 Hypokalemia; I25.10 Atherosclerotic heart disease of native coronary artery without angina pectoris; E11.9 Type 2 diabetes mellitus without complications; I48.91 Unspecified atrial fibrillation; I08.0 Rheumatic disorders of both mitral and aortic valves; E78.00 Pure hypercholesterolemia, unspecified; E66.9 Obesity, unspecified; I25.2 Old myocardial infarction; Z88.5 Allergy status to narcotic agent; Z79.899 Other long term (current) drug therapy; Z79.01 Long term (current) use of anticoagulants; Z95.5 Presence of coronary angioplasty implant and graft; Z68.33 Body mass index [BMI] 33.0-33.9, adult; Z79.82 Long term (current) use of aspirin
CPT/HCPCS: 36415; 36416; 71046; 72148; 80048; 80053; 82550; 82728; 83520; 83540; 83550; 83880; 84484; 84550; 85025; 85652; 86038; 86140; 86225; 86235; 93005; 93798; 93970; 96374; J0360; J1885; J1940; J2405; J2916; J2920; J3490

== ENCOUNTER 2020-05-06 13:38 | Outpatient (CLI) | payer MEDICARE ==
--- NOTE | 2020-05-06 14:44 | MRI ---
MRI CERVICAL SPINE WITHOUT CONTRAST: HISTORY: Cervical spine arthritis. Chronic neck pain and right shoulder pain times many years. Worsening sympt oms.. COMPARISON: None. FINDINGS: Appropriate T1 marrow signal intensity of the cervical vertebrae. Cervical spine vertebral body heig hts are maintained and there is no fracture. There is no significant STIR hyperintensity to suggest vertebral body edema or ligamentous injury. Visualized brain parenchyma, cervicomedullary junction, cervical cord and the upper thoracic cord hav e normal size and signal intensity. Spondylolisthesis: C2-C3: 2 mm of anterolisthesis. C6-C7: 1.3 mm retrolisthesis. C7-T1: 1.5 mm of anterolisthesis. T1-T2: 1.3 mm of retrolisthesis. T2-T3: 3.2 mm of anterolisthesis. C2-C3: Central disc herniation deforms the thecal sac and cervical cord. Mild central canal stenosis. Bilaterally, the neural foramina are patent. C3-C4: Disc desiccation without significant loss of disc space height. Broad-based disc-osteophyte co mplex abuts the thecal sac. There is mass effect and deformity the cervical cord. Mild to moderate central canal stenosis. Moderate right neural foraminal narrowing due to uncovertebral hypertrophy. L eft neural foramen is patent. C4-C5: Disc desiccation with mild loss of disc space height. Disc-osteophyte complex abuts the thecal sac. There is no significant central canal stenosis. Severe right neural foraminal narrowing due to uncovertebral and facet hypertrophy. Left neural foramen is patent. C5-C6: Disc desiccation with moderate loss of disc space height. There is a broad-based disc-osteophy te complex that effaces the cervical cord. Moderate to severe central canal stenosis. Mild bilateral foraminal narrowing due to uncovertebral hypertrophy. C6-C7: Disc desiccation with moderate loss of disc space height. Disc-osteophyte complex abuts the th ecal sac. Subarachnoid space is maintained. Mild deformity of the cervical cord. Mild central canal stenosis. Mild bilateral neural foraminal narrowing due to uncovertebral hypertrophy. C7-T1: No significant central canal stenosis or significant neural foraminal narrowing. IMPRESSION: 1. Multilevel degenerative changes of the cervical spine as described above. 2. Spondylolisthesis as detailed above. Transcribed Date/Time: 05/06/2020 3:29 PM
== END 2020-05-06 13:39 | disposition home or self-care (01) ==
LOC: SCSMRI 13:38
PROVIDERS: ATTEND Orthopaedic Surgery
DX: M47.812 Spondylosis without myelopathy or radiculopathy, cervical region (principal); M43.12 Spondylolisthesis, cervical region
CPT/HCPCS: 72141

== ENCOUNTER 2020-06-10 15:17 | Outpatient (CLI) | payer MEDICARE ==
--- NOTE | 2020-06-10 15:51 | RAD ---
EXAM: 4 views of the lumbosacral spine HISTORY: Chronic back pain COMPARISON: None FINDINGS: 4 views of the lumbosacral spine shows normal height of the vertebral bodies without fractu re or subluxation. The intervertebral discs are narrowed throughout the lumbar spine. There is grade 1 anterolisthesis of L4 on L5. Moderate posterior facet arthrosis is seen in the lower lumbosac ral spine. Alignment is unchanged with flexion and extension. The sacroiliac joints are unremarkable. Calcifications are seen in the aorta. IMPRESSION: Degenerative changes of the lumbar spine with unchanged alignment with bending
--- NOTE | 2020-06-10 15:53 | RAD ---
EXAM: 5 views of the cervical spine HISTORY: Neck pain COMPARISON: None FINDINGS: AP, lateral, flexion/extension, and open mouth odontoid views of the cervical spine shows n ormal height and alignment of the vertebral bodies without fracture or subluxation. Severe degenerative changes are seen throughout the cervical spine with intervertebral disc space narrowing and osteophyte formation. No prevertebral soft tissue swelling is seen. Alignment is unchanged with flexion and extension. IMPRESSION: Severe degenerative changes of the cervical spine with unchanged alignment with bending
== END 2020-06-10 15:18 | disposition home or self-care (01) ==
LOC: SCSRAD 15:17
PROVIDERS: ATTEND Neurological Surgery
DX: M47.22 Other spondylosis with radiculopathy, cervical region (principal); M47.26 Other spondylosis with radiculopathy, lumbar region
CPT/HCPCS: 72050; 72110